=== PATIENT | male | born 1955 | race Caucasian/White ===

== ENCOUNTER → 2021-06-18 | Outpatient (CLI) | payer MEDICARE ==
--- NOTE | 2021-06-18 16:32 | REP ---
INDICATION: Carcinoma of the face right cheek. Previous history of bladder carcinoma. COMPARISON: None TECHNIQUE: After the intravenous administration of 8.68 mCi of FDG 18 triplane whole-body PET-CT was performed from the skull base to the mid thigh. None corrected images of the skin were also reviewed whole-body. FINDINGS: There is no abnormal hypermetabolic activity seen in the neck, chest, abdomen, or pelvis. Additionally, no abnormal hypermetabolic activity is seen on whole body imaging and no abnormal hypermetabolic activity was seen in the skin on the non corrected MIP 3D images. Specifically, there is no abnormal hypermetabolic activity seen in the face right malar region. IMPRESSION: No abnormal hypermetabolism. <Electronically signed by Darci Ivey > 06/18/21 0906
== END ==
LOC: M PLARAD 13:07
PROVIDERS: ATTEND Dermatology
DX: C80.1 Malignant (primary) neoplasm, unspecified (principal)
CPT/HCPCS: 78816; A9552

== ENCOUNTER → 2021-06-19 | Outpatient (CLI) | payer MEDICARE ==
--- NOTE | 2021-06-19 11:49 | REP ---
INDICATION: ATRAUMATIC PAIN IN RIGHT ANKLE. COMPARISON: None TECHNIQUE: Three views FINDINGS: There is asymmetric narrowing of the mortise which is widest medially. There is subchondral sclerosis of the talar dome and tibial plafond. There is evidence of previous distal tibiotalar fusion with removal of orthopedic hardware. There is an old healed distal fibular fracture. Plantar and retrocalcaneal heel spurs are present. There is some evidence of narrowing and subchondral sclerosis of the posterior facet. IMPRESSION: Chronic changes as described above. There are no priors for comparison. Comparison to priors in regards to the mortise may be prudent. Consider MRI of the ankle to assess for a heel valgus deformity and lateral hindfoot impingement if clinically relevant. <Electronically signed by Darci Ivey > 06/19/21 0741
== END ==
LOC: M SOG 11:11
PROVIDERS: ATTEND Orthopaedic Surgery
DX: M77.31 Calcaneal spur, right foot (principal); M25.571 Pain in right ankle and joints of right foot
CPT/HCPCS: 13132; 17311; 73610; G0463